=== PATIENT | female | born 1960 | race Caucasian/White ===

== ENCOUNTER 2024-03-06 13:37 | Outpatient (CLI) | payer BC | END 2024-03-06 13:38 | disposition home or self-care (01) | LOC: CSHMAMMO 13:37 | PROVIDERS: ATTEND Obstetrics & Gynecology | DX: R92.8 Other abnormal and inconclusive findings on diagnostic imaging of breast (principal); N60.02 Solitary cyst of left breast | CPT/HCPCS: G0279 ==